=== PATIENT | male | born 1985 | race Caucasian/White ===

== ENCOUNTER 2017-01-28 20:41 | Emergency (ER) | payer MEDICAID ==
[~2017-01-28] VITALS: Ht 175.3 cm; Wt 64.9 kg
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
[2017-01-28] MEDS ORDERED: KETOROLAC TROMETHAMINE 60 MG INJ IM ONE ×2 (21:15→21:21)
--- NOTE | 2017-01-28 22:01 | NUR ---
Patient discharged to home in stable conditon. Written and verbal after care instructions given. Patient verbalizes understanding of instructions. Pt walked out of ER unassisted, with and belongings at side...
[2017-01-28 22:03] VITALS: BP 158/102
== END 2017-01-28 22:04 | disposition home or self-care (01) ==
LOC: ER 20:41
DX: R07.89 Other chest pain (principal); V89.2XXA Person injured in unspecified motor-vehicle accident, traffic, initial encounter; Y93.89 Activity, other specified; Y99.8 Other external cause status; Y92.89 Other specified places as the place of occurrence of the external cause
CPT/HCPCS: 71010; 93005; A4663; J1885